=== PATIENT | female | born 1990 | race Caucasian/White ===

== ENCOUNTER 2019-12-21 16:04 | Emergency (ER) | payer MEDICAID ==
[~2019-12-21] VITALS: Ht 165.1 cm; Wt 73.0 kg
[2019-12-21 16:25] VITALS: BP 117/78
[2019-12-21] MEDS ORDERED: CEPH250T PO (17:44)
[2019-12-21] MEDS ORDERED: TETanus/Pertussis (Acell)/Diphther VAC/PF (Tdap-Adult) 0.5ml syringe IMVAC ONE (17:45)
== END 2019-12-21 18:19 | disposition home or self-care (01) ==
LOC: ER 16:06
DX: L03.011 Cellulitis of right finger (principal)
CPT/HCPCS: 73140; 90471; 90715; 99283

== ENCOUNTER 2020-01-11 11:55 | Emergency (ER) | payer MEDICAID, OTHER ==
[~2020-01-11] VITALS: Ht 165.1 cm; Wt 78.2 kg
[2020-01-11] MEDS ORDERED: AMOX500C2 PO (12:14)
[2020-01-11] MEDS ORDERED: ONDA4TAB6 PO (12:14)
[2020-01-11] MEDS ORDERED: HYDR-3965 PO (12:14)
[2020-01-11] MEDS ORDERED: METH4TAB81 PO (12:14)
[2020-01-11] MEDS ORDERED: ketorolac tromethamine 15mg/ml inj. IM ONE (12:15)
[2020-01-11] MEDS ORDERED: acetaminophen 325mg tablet PO ONE (12:15)
[2020-01-11] MEDS ORDERED: furosemide 10 MG/1 ML 10ml inj IV ONE (12:20)
== END 2020-01-11 12:29 | disposition home or self-care (01) ==
LOC: ER 11:56
DX: K08.89 Other specified disorders of teeth and supporting structures (principal)
CPT/HCPCS: 96372; 99283; J1885

== ENCOUNTER 2020-04-09 13:51 | Emergency (ER) | payer MEDICAID, OTHER ==
[~2020-04-09] VITALS: Ht 165.1 cm; Wt 68.2 kg
[~2020-04-09 13:51] MED LIST: METH4TAB81 PO; ONDA4TAB6 PO
[2020-04-09 14:12] VITALS: BP 112/73
== END 2020-04-09 15:30 | disposition home or self-care (01) ==
LOC: ER 13:52
DX: F15.90 Other stimulant use, unspecified, uncomplicated (principal); Z79.899 Other long term (current) drug therapy
CPT/HCPCS: 99284

== ENCOUNTER 2020-11-08 12:32 | Emergency (ER) | payer OTHER ==
[~2020-11-08] VITALS: Ht 165.1 cm; Wt 69.0 kg
[2020-11-08 12:40] VITALS: BP 145/111
[2020-11-08] MEDS ORDERED: NAPR-56 PO (13:29)
[2020-11-08] MEDS ORDERED: PENI250T2 PO (13:29)
[2020-11-08] MEDS ORDERED: naproxen 500mg tablet PO ONE (13:40)
[2020-11-08] MEDS ORDERED: naproxen 500mg tablet ONE (13:41)
== END 2020-11-08 13:47 | disposition home or self-care (01) ==
LOC: ER 12:32
DX: K08.89 Other specified disorders of teeth and supporting structures (principal); K00.7 Teething syndrome; F15.90 Other stimulant use, unspecified, uncomplicated; Z79.2 Long term (current) use of antibiotics; Z79.899 Other long term (current) drug therapy
CPT/HCPCS: 99283

== ENCOUNTER 2020-11-26 06:51 | Emergency (ER) | payer MEDICAID, OTHER ==
[~2020-11-26] VITALS: Ht 165.1 cm; Wt 68.9 kg
[~2020-11-26 06:51] MED LIST changes: +NAPR-56 PO
[2020-11-26 06:52] VITALS: BP 124/85
[2020-11-26] MEDS ORDERED: IBUP-1986 PO (07:23)
[2020-11-26] MEDS ORDERED: PENI500T2 PO (07:23)
[2020-11-26] MEDS ORDERED: HYDR-3965 PO (07:23)
== END 2020-11-26 07:47 | disposition home or self-care (01) ==
LOC: ER 06:51
DX: K02.9 Dental caries, unspecified (principal); F15.90 Other stimulant use, unspecified, uncomplicated; Z79.899 Other long term (current) drug therapy
CPT/HCPCS: 99283

== ENCOUNTER 2021-01-12 10:45 | Emergency (ER) | payer MEDICAID ==
[~2021-01-12] VITALS: Ht 165.1 cm; Wt 67.5 kg
[~2021-01-12 10:45] MED LIST changes: +IBUP-1986 PO; -NAPR-56 PO
[2021-01-12 11:05] VITALS: BP 146/87
[2021-01-12] MEDS ORDERED: IBUP-1984 PO (11:33)
[2021-01-12] MEDS ORDERED: AMOX-422 PO (11:33)
[2021-01-12] MEDS ORDERED: ibuprofen tablet 400 MG TABLET PO ONE (11:35)
== END 2021-01-12 11:43 | disposition home or self-care (01) ==
LOC: ER 10:47
DX: K08.89 Other specified disorders of teeth and supporting structures (principal); F15.90 Other stimulant use, unspecified, uncomplicated; Z79.2 Long term (current) use of antibiotics; Z79.899 Other long term (current) drug therapy
CPT/HCPCS: 99283

== ENCOUNTER 2021-03-17 14:00 | Emergency (ER) | payer MEDICAID ==
[~2021-03-17] VITALS: Ht 165.1 cm; Wt 69.8 kg
[2021-03-17 14:09] VITALS: BP 139/73
[2021-03-17] MEDS ORDERED: PENI500T2 PO (14:18)
[2021-03-17] MEDS ORDERED: IBUP-1984 PO (14:18)
[2021-03-17] MEDS ORDERED: HYDR-3965 PO (14:18)
== END 2021-03-17 14:26 | disposition home or self-care (01) ==
LOC: ER 14:01
DX: K08.89 Other specified disorders of teeth and supporting structures (principal); F15.90 Other stimulant use, unspecified, uncomplicated; Z79.2 Long term (current) use of antibiotics; Z79.899 Other long term (current) drug therapy
CPT/HCPCS: 99283

== ENCOUNTER 2021-05-03 17:48 | Emergency (ER) | payer MEDICAID ==
[~2021-05-03] VITALS: Ht 165.1 cm; Wt 59.0 kg
[2021-05-03] MEDS ORDERED: amox tr/potassium clavulanate 875/125mg TAB PO ONE (19:35)
[2021-05-03] MEDS ORDERED: naproxen 500mg tablet PO ONE (19:35)
[2021-05-03] MEDS ORDERED: HYDROcodone/acetaminophen 5mg/325mg tablet PO ONE (19:35)
[2021-05-03] MEDS ORDERED: NAPR-56 PO (19:44)
[2021-05-03] MEDS ORDERED: AMOX-117 PO (19:44)
[2021-05-03 20:13] VITALS: BP 137/87
== END 2021-05-03 20:10 | disposition home or self-care (01) ==
LOC: ER 17:48
DX: K02.9 Dental caries, unspecified (principal); K04.7 Periapical abscess without sinus; K08.89 Other specified disorders of teeth and supporting structures; F15.90 Other stimulant use, unspecified, uncomplicated; Z56.0 Unemployment, unspecified; Z79.2 Long term (current) use of antibiotics; Z79.899 Other long term (current) drug therapy
CPT/HCPCS: 99284

== ENCOUNTER 2022-05-09 14:27 | Emergency (ER) | payer MEDICAID ==
[~2022-05-09] VITALS: Ht 165.1 cm; Wt 68.2 kg
[2022-05-09 14:31] VITALS: BP 121/78
[2022-05-09] MEDS ORDERED: HYDROcodone/acetaminophen 5mg/325mg tablet PO ONE (15:35)
[2022-05-09] MEDS ORDERED: CefTRIAXone 1000mg IM Kit (w/lidocaine diluent) IM ONE (15:35)
[2022-05-09 16:13] LABS: BASOPHILS % (AUTO) 0.4 % (0-1); HEMATOCRIT 35.1 % (35.0-45.0); HEMOGLOBIN 11.9 g/dl (12.0-16.0); LYMPHOCYTES # (AUTO) 0.3 X10'3 (1.1-4.8); LYMPHOCYTES % (AUTO) 9.5 % (21-51); MEAN CORPUSCULAR HEMOGLOBIN 29.6 PG (27.0-31.0); MEAN CORPUSCULAR VOLUME 87.1 FL (78-98); MEAN PLATELET VOLUME 8.2 FL (7.4-10.4); MONOCYTES # (AUTO) 0.3 X10'3 (0-0.9); MONOCYTES % (AUTO) 12.2 % (2-12); NEUTROPHILS # (AUTO) 2.2 X10'3 (1.8-7.7); NEUTROPHILS % (AUTO) 76.9 % (42-75); PLATELET COUNT 133 X10'3 (140-440); RED BLOOD COUNT 4.03 X10'6 (4.20-5.60); RED CELL DISTRIBUTION WIDTH 12.9 % (11.5-14.5); WHITE BLOOD COUNT 2.8 X10'3 (4.5-11.0)
[2022-05-09 16:25] LABS: ALANINE AMINOTRANSFERASE 32 U/L (12-78); ALBUMIN 3.2 G/DL (3.4-5.0); ALKALINE PHOSPHATASE 50 IU/L (46-116); ANION GAP 6 (8-16); ASPARTATE AMINO TRANSFERASE 26 U/L (10-37); BILIRUBIN,TOTAL 0.3 MG/DL (0.1-1.0); BLOOD UREA NITROGEN 15 MG/DL (7-18); BUN/CREATININE RATIO 16.7 (6.6-38.0); CALCIUM 8.5 MG/DL (8.5-10.1); CHLORIDE 101 MMOL/L (99-107); GLUCOSE 97 MG/DL (70-104); POTASSIUM 3.6 MMOL/L (3.5-5.1); SODIUM 136 MMOL/L (135-145); TOTAL CARBON DIOXIDE 28.8 MMOL/L (24-32); TOTAL PROTEIN 6.3 G/DL (6.4-8.2); eGFR 73 ML/MIN
--- NOTE | 2022-05-09 16:40 | NUR ---
PO MED GIVEN IM GIVEN
--- NOTE | 2022-05-09 16:47 | NUR ---
PT LEFT AMA. PT VERBALLY ABUSIVE TOWARDS STAFF STATING SHE IS NOT STAYING WITHOUT HER FIANCE. MULTIPLE ATTEMPTS WERE MADE TO LOCATE [facility]ANCE IN WAITING ROOM. PHONE NUMBER PROVIDED AND NO ANSWER. PT SEEN LEAVING THE ER BY STAFF [id number]. INFORMED
[2022-05-09] MEDS ORDERED: DOXY100C43 PO (16:52)
[2022-05-09 17:04] LABS: PLATELET ESTIMATE DECREASED; TOTAL CELLS COUNTED 100
== END 2022-05-09 16:47 | disposition left against medical advice (07) ==
LOC: ER 14:28
DX: N73.9 Female pelvic inflammatory disease, unspecified (principal); F15.10 Other stimulant abuse, uncomplicated; Z59.00 Homelessness unspecified; Z79.899 Other long term (current) drug therapy
CPT/HCPCS: 36415; 80053; 85007; 85025; 96372; 99283; J0696

== ENCOUNTER 2022-05-09 18:52 | Emergency (ER) | payer MEDICAID ==
[~2022-05-09] VITALS: Ht 165.1 cm; Wt 68.2 kg
[~2022-05-09 18:52] MED LIST changes: +DOXY100C43 PO
[2022-05-09 19:24] VITALS: BP 114/35
== END 2022-05-09 20:25 | disposition left against medical advice (07) ==
LOC: ER 18:53
DX: Z76.0 Encounter for issue of repeat prescription (principal); Z53.21 Procedure and treatment not carried out due to patient leaving prior to being seen by health care provider

== ENCOUNTER 2023-02-17 19:29 | Emergency (ER) | payer MEDICAID ==
[~2023-02-17] VITALS: Ht 165.1 cm; Wt 68.2 kg
[~2023-02-17 19:29] MED LIST changes: -DOXY100C43 PO
[2023-02-17 19:43] VITALS: BP 134/58
[2023-02-17] MEDS ORDERED: ketorolac trometh inj. 60 MG/2 ML VIAL IM ONE (20:30)
[2023-02-17] MEDS ORDERED: IBUP-1986 PO (20:31)
[2023-02-17] MEDS ORDERED: AMOX-100 PO (20:31)
== END 2023-02-17 20:46 | disposition home or self-care (01) ==
LOC: ER 19:29
DX: K08.89 Other specified disorders of teeth and supporting structures (principal); F15.90 Other stimulant use, unspecified, uncomplicated; Z56.0 Unemployment, unspecified; Z79.899 Other long term (current) drug therapy
CPT/HCPCS: 96372; 99283; J1885

== ENCOUNTER 2023-09-03 03:58 | Emergency (ER) | payer MEDICAID ==
[~2023-09-03] VITALS: Ht 165.1 cm; Wt 68.2 kg
[2023-09-03 03:59] VITALS: TEMP 98
[2023-09-03] MEDS ORDERED: normal saline 1000ML IV soln IVB ONE (04:15)
[2023-09-03 05:08] LABS: ALANINE AMINOTRANSFERASE 58 U/L (12-78); ALBUMIN 2.9 G/DL (3.4-5.0); ALBUMIN/GLOBULIN RATIO 0.7 (1.1-1.5); ALKALINE PHOSPHATASE 61 IU/L (46-116); ANION GAP 9 (8-16); ASPARTATE AMINO TRANSFERASE 34 U/L (10-37); BILIRUBIN,TOTAL 0.5 MG/DL (0.1-1.0); BLOOD UREA NITROGEN 24 MG/DL (7-18); BUN/CREATININE RATIO 21.6 (10.0-20.0); CALCIUM 8.7 MG/DL (8.5-10.1); CHLORIDE 98 MMOL/L (99-107); CREATININE 1.11 MG/DL (0.40-0.90); GLUCOSE 113 MG/DL (70-104); LIPASE 26 U/L (16-77); POTASSIUM 4.1 MMOL/L (3.5-5.1); SODIUM 133 MMOL/L (135-145); TOTAL CARBON DIOXIDE 26.5 MMOL/L (24-32); TOTAL PROTEIN 7.1 G/DL (6.4-8.2); eCRCL 65 ML/MIN; eGFR 57 ML/MIN
[2023-09-03 05:09] LABS: BASOPHILS % (AUTO) 0.3 % (0-1); EOSINOPHILS % (AUTO) 0.7 % (0-6); HEMATOCRIT 44.1 % (35.0-45.0); HEMOGLOBIN 14.9 g/dl (12.0-16.0); LYMPHOCYTES # (AUTO) 0.9 X10'3 (1.1-4.8); LYMPHOCYTES % (AUTO) 17.1 % (21-51); MEAN CORPUSCULAR HEMOGLOBIN 28.4 PG (27.0-31.0); MEAN CORPUSCULAR HGB CONC 33.8 g/dL (33.0-36.5); MEAN CORPUSCULAR VOLUME 84.2 FL (78-98); MEAN PLATELET VOLUME 8.7 FL (7.4-10.4); MONOCYTES # (AUTO) 0.6 X10'3 (0-0.9); MONOCYTES % (AUTO) 12.5 % (2-12); NEUTROPHILS # (AUTO) 3.6 X10'3 (1.8-7.7); NEUTROPHILS % (AUTO) 69.4 % (42-75); PLATELET COUNT 161 X10'3 (140-440); RED BLOOD COUNT 5.24 X10'6 (4.20-5.60); RED CELL DISTRIBUTION WIDTH 13.2 % (11.5-14.5); WHITE BLOOD COUNT 5.2 X10'3 (4.5-11.0)
[2023-09-03] MEDS ORDERED: ondansetron/PF 4mg/2ml inj IV ONE (08:05)
[2023-09-03] MEDS ORDERED: diazepam inj 5 MG/ML inj. IV ONE (08:05)
[2023-09-03] MEDS ORDERED: ketorolac trometh. 30mg/ml inj. IV ONE (08:05)
[2023-09-03 08:59] LABS: HCG SERUM QL NEGATIVE
[2023-09-03 10:56] VITALS: BP 101/60; PULSE 71; RESP 16; O2SAT 98
[2023-09-03 12:39] LABS: URINE HCG NEGATIVE (NEG)
== END 2023-09-03 11:51 | disposition left against medical advice (07) ==
LOC: ER 03:58
DX: K52.89 Other specified noninfective gastroenteritis and colitis (principal); N20.1 Calculus of ureter; Z79.899 Other long term (current) drug therapy
CPT/HCPCS: 36415; 74176; 80053; 81025; 83690; 84703; 85025; 86885; 86900; 86901; 96361; 96374; 96375; 99285; J1885; J2405; J7030